=== PATIENT | male | born 1985 | race Caucasian/White ===

== ENCOUNTER 2021-04-07 16:05 | Outpatient (CLI) | payer BC, SELFPAY ==
--- NOTE | 2021-04-07 | ECG_ITS ---
Measurements Intervals [place] Rate: 97 P: 81 MO: 139 QRS: 84 QRSD: 87 T: 66 QT: 310 QTc: 395 Interpretive Statements SINUS RHYTHM MINIMAL Q WAVES- INF/LAT LEADS BASELINE ARTIFACT- I, II, III BORDERLINE ECG Electronically Signed On 04-07-2021 16:33:33 CDT by Horacio Juan D.O.
--- NOTE | 2021-04-13 16:21 | P.PCNHOL_ITS ---
Holter/Event Monitor Holter/Event Monitor Date of procedure: 04/07/21 Holter/Event Procedure: 48 Hr Holter Monitor Indications: Chest pain Conclusion: 1. 48 hour holter monitor on 04/07/21. 2. Underlying rhythm is sinus rhythm. HR range 52-141 bpm; average HR 86 bpm. 3. There are 1 premature supraventricular complex. No supraventricular tachycardia. 4. There are 3 premature ventricular complexes. No ventricular tachycardia. 5. No sinoatrial or atrioventricular blocks. No significant pauses greater than 2 seconds. 6. Patient reports symptoms of dizziness, heart flutter, shortness of breath, palpitations, heart pain, tightness which demonstrate sinus rhythm, HR range 79- 108 bpm.
== END 2021-04-07 16:06 | disposition home or self-care (01) ==
LOC: ANHCARD 16:10
PROVIDERS: PCP Emergency Medicine; Visit Provider Emergency Medicine
DX: R00.2 Palpitations (principal)
CPT/HCPCS: 93005; 93225; 93226

== ENCOUNTER 2021-04-10 14:38 | Outpatient (CLI) | payer BC, SELFPAY ==
--- NOTE | 2021-04-10 | ECHO_ITS ---
Patient Info Name: FAROOQ MCGOWAN Age: 36 years : 1985 Gender: Male Ht: 67 in Wt: 120 lbs BSA: 1.60 m2 HR: 87 bpm BP: 117 / 74 mmHg Technical Quality: Good Exam Date: 04/10/2021 3:04 PM Exam Location: [facility] Patient Status: Outpatient Admit Date: 04/10/2021 Staff Ordering Physician: Luis Daniel Bravo MD Auction Clerk: Amparo Whitehead RDCS Attending Provider: Luis Daniel Bravo MD Referring Physician: Lawrence GUO; Exam Type: CA echo doppler color flow Study Info Indications - palpitations Complete two-dimensional, color flow and Doppler transthoracic echocardiogram is performed. Summary 1. Complete two-dimensional, color flow and Doppler transthoracic echocardiogram is performed. 2. Left ventricular chamber dimension is normal. 3. Left ventricular systolic function is normal, estimated at 60-65%. 4. The left ventricular diastolic function is normal. 5. E/e' 6 is not elevated. 6. There is trace tricuspid valve regurgitation. 7. No pulmonary hypertension, estimated pulmonary arterial systolic pressure is 28 mmHg. Left Ventricle E/e' 6 is not elevated. Left ventricular chamber dimension is normal. Left ventricular systolic function is normal, estimated at 60-65%. The left ventricular diastolic function is normal. Right Ventricle Right ventricular chamber dimension is normal. Right ventricular systolic function is normal. Left Atria Left atrial chamber dimension is normal. Right Atria Right atrial chamber dimension is normal. Aortic Valve The aortic valve is trileaflet. There is no aortic valve stenosis. There is no aortic valve regurgitation. Pulmonic Valve There is no pulmonic regurgitation. Mitral Valve There is no mitral valve stenosis. There is no mitral valve regurgitation. Tricuspid Valve There is trace tricuspid valve regurgitation. No pulmonary hypertension, estimated pulmonary arterial systolic pressure is 28 mmHg. Pericardium/Pleural There is no pericardial effusion. Inferior Vena Cava Normal inferior vena cava with >50% collapse upon inspiration consistent with normal right atrial pressure, 5 mmHg. Aorta The aortic root size at the sinus of Valsalva is normal. Left Ventricular Outflow Tract Name Value Normal LVOT 2D LVOT Diameter 2.0 cm LVOT Doppler LVOT Peak Gradient 4 mmHg LVOT Mean Gradient 2 mmHg LVOT VTI 17 cm LVOT VTI/AV VTI Ratio 0.7 LVOT Stroke Volume 57 ml LVOT CO 14.2 l/min LVOT CI 8.9 l/min/m2 Pulmonic Valve Name Value Normal PV Doppler PV Peak Gradient 3 mmHg Mitral Valve
== END 2021-04-10 14:39 | disposition home or self-care (01) ==
LOC: ANHCARD 14:40
PROVIDERS: PCP Emergency Medicine; Visit Provider Emergency Medicine
DX: R00.2 Palpitations (principal)
CPT/HCPCS: 93306